=== PATIENT | female | born 1975 | race Caucasian/White ===

== ENCOUNTER 2017-06-23 16:14 | Emergency (ER) | payer OTHER ==
[2017-06-23 16:40] VITALS: BP 162/84; PULSE 76; RESP 20; TEMP 98.2
--- NOTE | 2017-06-23 16:57 | ED ---
Allergic Reaction HPI - General Chief complaint: Allergic Reaction Stated complaint: allergic reaction (bactrim) Time Seen by Provider: 06/23/17 16:43 Source: patient Mode of arrival: ambulatory Limitations: no limitations - History of Present Illness Initial Comments: 42-year-old female patient presented to emergency department today for evaluation of rash to her trunk. Patient states this rash is itchy. Patient states that it started yesterday. States that she has been taking Bactrim for the last 5 days for a infection to her skin on the left hip. Patient states that she called her doctor who told her to come in to get a different antibiotic prescription. Patient does have a healing abscess to the left hip. Denies any blistering or drainage from the lesions. She denies any facial, tongue, or throat swelling. Denies any shortness of breath, chest pain, dizziness, weakness, abdominal pain, nausea, vomiting, fever, chills, or difficulty with urination or bowel movements. She denies ever having taken Bactrim in the past. - Related Data Previous Rx's Medication Instructions Recorded Clindamycin [Cleocin] 300 mg PO Q6H #28 capsule 06/23/17 Allergies Allergy/AdvReac Type Severity Reaction Status Date / Time codeine Allergy Nausea & Verified 06/23/17 16:39 Vomiting sulfamethoxazole Allergy Rash/Hives Verified 06/23/17 17:02 [From Bactrim] trimethoprim [From Bactrim] Allergy Rash/Hives Verified 06/23/17 17:02 Review of Systems ROS Statement: Those systems with pertinent positive or pertinent negative responses have been documented in the HPI. ROS Other: All systems not noted in ROS Statement are negative. Past Medical History Past Medical History: No Reported History History of Any Multi-Drug Resistant Organisms: None Reported Past Surgical History: Section, Tonsillectomy Past Psychological History: No Psychological Hx Reported Smoking Status: Never smoker Past Alcohol Use History: None Reported Past Drug Use History: None Reported General Exam Limitations: no limitations General appearance: alert, in no apparent distress Eye exam: Present: normal appearance, PERRL, EOMI. Absent: scleral icterus, conjunctival injection, periorbital swelling ENT exam: Present: normal exam, mucous membranes moist Neck exam: Present: normal inspection. Absent: tenderness, meningismus, lymphadenopathy Respiratory exam: Present: normal lung sounds bilaterally. Absent: respiratory distress, wheezes, rales, rhonchi, stridor Cardiovascular Exam: Present: regular rate, normal rhythm, normal heart sounds. Absent: systolic murmur, diastolic murmur, rubs, gallop, clicks Extremities exam: Present: normal inspection, full ROM, normal capillary refill , other (Left hip exhibits an ulcerated lesion with surrounding erythema, no warmth to the site. No area of drainable abscess.). Absent: tenderness, pedal edema, joint swelling, calf tenderness Back exam: Present: normal inspection Neurological exam: Present: alert, oriented X3, CN II-XII intact Psychiatric exam: Present: normal affect, normal mood Skin exam: Present: warm, dry, intact, normal color, rash (Rash noted to abdomen and back, macular with surrounding erythema. It appears to be hives.) Course Vital Signs 06/23/17 16:39 Temperature 98.2 F Pulse Rate 76 Respiratory 20 Rate Blood Pressure 162/84 O2 Sat by Pulse 98 Oximetry Medical Decision Making - Medical Decision Making 42-year-old female patient presented to emergency department today for evaluation of rash to her abdomen and back. The patient has been taking Bactrim for the last 5 days states that she has never taken this before. Will be taken off Bactrim and placed on clindamycin for a staph infection to an abscess on her left hip. Patient instructed to continue taking Benadryl every 6 hours, also instructed her that she could take [id number] Claritin or Zyrtec as well. Instructed to follow-up with her primary care physician for recheck in 1-2 days. Instructed to return for any new, worsening, or concerning symptoms. Patient verbalizes understanding and agrees this plan. Disposition Clinical Impression: Staphylococcal infection of skin, Allergic reaction caused by a drug Disposition: HOME SELF-CARE Condition: Good Instructions: Antibiotic Medication Allergy (ED) Additional Instructions: Take Benadryl every 6 hours as needed for symptoms. Stop taking Bactrim. Complete new antibiotic in full. Follow up with primary care physician for recheck in 1-2 days. Return here immediately for any new, worsening, or concerning symptoms. Prescriptions: Clindamycin [Cleocin] 300 mg PO Q6H #28 capsule Referrals: Korina Romero MD [Primary Care Provider] - 1-2 days Time of Disposition: 16:56
== END 2017-06-23 17:04 | disposition home or self-care (01) ==
LOC: EC 16:14
DX: T37.0X5A Adverse effect of sulfonamides, initial encounter (principal); L27.0 Generalized skin eruption due to drugs and medicaments taken internally; L02.416 Cutaneous abscess of left lower limb; B95.8 Unspecified staphylococcus as the cause of diseases classified elsewhere; Z88.5 Allergy status to narcotic agent; Z88.6 Allergy status to analgesic agent
CPT/HCPCS: 99283

== ENCOUNTER 2021-03-01 12:41 | Emergency (ER) | payer OTHER ==
[2021-03-01 12:57] VITALS: TEMP 98.3
[2021-03-01] MEDS ORDERED: LORazepam 2 MG/ML INJ IV STA (13:06)
--- NOTE | 2021-03-01 13:10 | ED ---
General Adult HPI - General Chief complaint: Chest Pain Stated complaint: High BP,Sent by pcp Time Seen by Provider: 03/01/21 12:55 Source: patient, RN notes reviewed, old records reviewed Mode of arrival: ambulatory Limitations: no limitations - History of Present Illness Initial comments: This is a 45-year-old female with past medical history significant for anxiety and panic attacks. Patient states yesterday she went in to see her foot doctor and at the office her blood pressure was high. Her about a blood pressure cuff and took it all night long and she states it continued to be high and getting higher so she called her primary medical care doctor's office they told to come to the emergency department. Patient denies any chest pain patient denies any palpitations. Patient denies any shortness of breath or difficulty breathing. Patient denies any recent fever chills or cough per patient denies headache patient denies any blurred vision. Patient denies any numbness or weakness. Patient denies any recent abdominal pain nausea vomiting or diarrhea. - Related Data Home Medications Medication Instructions Recorded Confirmed Apple Cider Vinegar Gummies 2 tab PO DAILY 03/01/21 03/01/21 Multivitamins, Thera [Multivitamin 1 tab PO DAILY 03/01/21 03/01/21 (formulary)] Previous Rx's Medication Instructions Recorded amLODIPine [Norvasc] 5 mg PO DAILY #20 tab 03/01/21 Allergies Allergy/AdvReac Type Severity Reaction Status Date / Time codeine Allergy Nausea & Verified 03/01/21 13:29 Vomiting sulfamethoxazole Allergy Rash/Hives Verified 03/01/21 13:29 [From Bactrim] trimethoprim [From Bactrim] Allergy Rash/Hives Verified 03/01/21 13:29 Review of Systems ROS Statement: Those systems with pertinent positive or pertinent negative responses have been documented in the HPI. ROS Other: All systems not noted in ROS Statement are negative. Past Medical History Past Medical History: No Reported History History of Any Multi-Drug Resistant Organisms: None Reported Past Surgical History: Section, Tonsillectomy, Uterine Ablation Past Psychological History: No Psychological Hx Reported Smoking Status: Never smoker Past Alcohol Use History: None Reported Past Drug Use History: None Reported General Exam - General Exam Comments Initial Comments: GENERAL: Patient is well-developed and well-nourished. Patient is nontoxic and well- hydrated and is in mild distress. ENT: Neck is soft and supple. No significant lymphadenopathy is noted. Oropharynx is clear. Moist mucous membranes. Neck has full range of motion without eliciting any pain. EYES: The sclera were anicteric and conjunctiva were pink and moist. Extraocular movements were intact and pupils were equal round and reactive to light. Eyelids were unremarkable. PULMONARY: Unlabored respirations. Good breath sounds bilaterally. No audible rales rhonchi or wheezing was noted. CARDIOVASCULAR: There is a regular rate and rhythm without any murmurs gallops or rubs. ABDOMEN: Soft and nontender with normal bowel sounds. SKIN: Skin is clear with no lesions or rashes and otherwise unremarkable. NEUROLOGIC: Patient is alert and oriented x3. Cranial nerves II through XII are grossly intact. Motor and sensory are also intact. Normal speech, volume and content. Symmetrical smile. MUSCULOSKELETAL: Normal extremities with adequate strength and full range of motion. LYMPHATICS: No significant lymphadenopathy is noted PSYCHIATRIC: Patient has anxious Limitations: no limitations Course Vital Signs 03/01/21 03/01/21 03/01/21 12:53 13:31 13:43 Temperature 98.3 F Pulse Rate 82 73 Pulse Rate [ 73 Caddy Packer ] Respiratory 18 16 Rate Blood Pressure 206/122 185/107 O2 Sat by Pulse 96 98 Oximetry 03/01/21 14:11 Temperature Pulse Rate 74 Pulse Rate [ Caddy Packer ] Respiratory 16 Rate Blood Pressure 143/101 O2 Sat by Pulse 99 Oximetry Medical Decision Making - Medical Decision Making EKG shows normal sinus rhythm at 92 bpm AL interval 252 QRS is 92 QT interval 360 QTC is 445. Patient's EKG shows no ST segment elevation or depression. Chest x-ray shows no acute normalities. Patient got 1 of Ativan her blood pressure came down quite a bit. - Lab Data Result diagrams: 03/01/21 13:05 03/01/21 13:05 Lab Results 03/01/21 03/01/21 03/01/21 Range/Units 13:05 13:05 13:05 WBC 9.2 (3.8-10.6) k/uL RBC 4.59 (3.80-5.40) m/uL Hgb 14.5 (11.4-16.0) gm/dL Hct 42.5 (34.0-46.0) % MCV 92.6 (80.0-100.0) fL MCH 31.6 (25.0-35.0) pg MCHC 34.1 (31.0-37.0) g/dL RDW 12.2 (11.5-15.5) % Plt Count 302 (150-450) k/uL MPV 6.8 Neutrophils % 73 % Lymphocytes % 18 % Monocytes % 6 % Eosinophils % 1 % Basophils % 0 % Neutrophils # 6.7 (1.3-7.7) k/uL Lymphocytes # 1.7 (1.0-4.8) k/uL Monocytes # 0.5 (0-1.0) k/uL Eosinophils # 0.1 (0-0.7) k/uL Basophils # 0.0 (0-0.2) k/uL PT 9.9 (9.0-12.0) sec INR 0.9 (<1.2) APTT 22.1 (22.0-30.0) sec Sodium 142 (137-145) mmol/L Potassium 4.3 (3.5-5.1) mmol/L Chloride 108 H (98-107) mmol/L Carbon Dioxide 26 (22-30) mmol/L Anion Gap 8 mmol/L BUN 22 H (7-17) mg/dL Creatinine 0.99 (0.52-1.04) mg/dL Est GFR (CKD-EPI)AfAm 79 (>60 ml/min/1.73 sqM) Est GFR (CKD-EPI)NonAf 68 (>60 ml/min/1.73 sqM) Glucose 69 L (74-99) mg/dL Calcium 9.5 (8.4-10.2) mg/dL Magnesium 1.8 (1.6-2.3) mg/dL Total Bilirubin 0.3 (0.2-1.3) mg/dL AST 32 (14-36) U/L ALT 27 (4-34) U/L Alkaline Phosphatase 71 (38-126) U/L Troponin I (0.000-0.034) ng/mL Total Protein 7.2 (6.3-8.2) g/dL Albumin 4.5 (3.5-5.0) g/dL 03/01/21 Range/Units 13:05 WBC (3.8-10.6) k/uL RBC (3.80-5.40) m/uL Hgb (11.4-16.0) gm/dL Hct (34.0-46.0) % MCV (80.0-100.0) fL MCH (25.0-35.0) pg MCHC (31.0-37.0) g/dL RDW (11.5-15.5) % Plt Count (150-450) k/uL MPV Neutrophils % % Lymphocytes % % Monocytes % % Eosinophils % % Basophils % % Neutrophils # (1.3-7.7) k/uL Lymphocytes # (1.0-4.8) k/uL Monocytes # (0-1.0) k/uL Eosinophils # (0-0.7) k/uL Basophils # (0-0.2) k/uL PT (9.0-12.0) sec INR (<1.2) APTT (22.0-30.0) sec Sodium (137-145) mmol/L Potassium (3.5-5.1) mmol/L Chloride (98-107) mmol/L Carbon Dioxide (22-30) mmol/L Anion Gap mmol/L BUN (7-17) mg/dL Creatinine (0.52-1.04) mg/dL Est GFR (CKD-EPI)AfAm (>60 ml/min/1.73 sqM) Est GFR (CKD-EPI)NonAf (>60 ml/min/1.73 sqM) Glucose (74-99) mg/dL Calcium (8.4-10.2) mg/dL Magnesium (1.6-2.3) mg/dL Total Bilirubin (0.2-1.3) mg/dL AST (14-36) U/L ALT (4-34) U/L Alkaline Phosphatase (38-126) U/L Troponin I <0.012 (0.000-0.034) ng/mL Total Protein (6.3-8.2) g/dL Albumin (3.5-5.0) g/dL Disposition Clinical Impression: Hypertensive urgency, Anxiety Disposition: HOME SELF-CARE Instructions (If sedation given, give patient instructions): Hypertension (ED) Prescriptions: amLODIPine [Norvasc] 5 mg PO DAILY #20 tab Is patient prescribed a controlled substance at d/c from ED?: No Referrals: Korina Romero MD [Primary Care Provider] - 1-2 days Time of Disposition: 14:17
[2021-03-01 13:37] LABS: Basophils % (A) 0 %; Eosinophils # (A) 0.1 k/uL (0-0.7); Eosinophils % (A) 1 %; HCT 42.5 % (34.0-46.0); HGB 14.5 gm/dL (11.4-16.0); Lymphocytes # (A) 1.7 k/uL (1.0-4.8); Lymphocytes % (A) 18 %; MCH 31.6 pg (25.0-35.0); MCHC 34.1 g/dL (31.0-37.0); MCV 92.6 fL (80.0-100.0); Mean Platelet Volume 6.8; Monocytes # (A) 0.5 k/uL (0-1.0); Monocytes % (A) 6 %; Neutrophils # (A) 6.7 k/uL (1.3-7.7); Neutrophils % (A) 73 %; Platelet Count 302 k/uL (150-450); RBC 4.59 m/uL (3.80-5.40); RDW 12.2 % (11.5-15.5); WBC 9.2 k/uL (3.8-10.6)
[2021-03-01 13:43] VITALS: RESP 16
[2021-03-01 13:48] LABS: Albumin 4.5 g/dL (3.5-5.0); Calcium 9.5 mg/dL (8.4-10.2); Magnesium 1.8 mg/dL (1.6-2.3); Potassium 4.3 mmol/L (3.5-5.1); Total Bilirubin 0.3 mg/dL (0.2-1.3); Total Protein 7.2 g/dL (6.3-8.2)
--- NOTE | 2021-03-01 13:54 | XR ---
EXAMINATION TYPE: XR chest 2V DATE OF EXAM: 03/01/2021 COMPARISON: None INDICATION: Chest pain TECHNIQUE: Frontal and lateral views of the chest are obtained. FINDINGS: The heart size is normal. The pulmonary vasculature is normal. The lungs are clear. IMPRESSION: 1. No acute pulmonary process.
[2021-03-01] MEDS ORDERED: hydrALAZINE HCL 20 MG/ML 1 ML VIAL IVP STA ×2 (13:56→14:56)
[2021-03-01 14:08] LABS: INR 0.9 (<1.2)
[2021-03-01 14:09] LABS: Partial Thromboplastin Time 22.1 sec (22.0-30.0); Prothrombin Time 9.9 sec (9.0-12.0)
[2021-03-01 14:11] VITALS: PULSE 74
[2021-03-01 14:57] VITALS: BP 164/111
== END 2021-03-01 15:27 | disposition home or self-care (01) ==
LOC: EC 12:41
DX: I16.0 Hypertensive urgency (principal); F41.9 Anxiety disorder, unspecified
CPT/HCPCS: 36415; 93005; 80053; 83735; 84484; 85025; 85610; 85730; 71046; 99284; 96374; 96375; J2060; J0360

== ENCOUNTER 2021-03-23 21:33 | Emergency (ER) | payer OTHER ==
[2021-03-23] MEDS ORDERED: SODIUM CHLORIDE 0.9% 1,000 ML IV STA (21:51)
[2021-03-23 21:52] VITALS: RESP 18; TEMP 97.6
--- NOTE | 2021-03-23 22:04 | ED ---
Chest Pain HPI - General Chief Complaint: Chest Pain Stated Complaint: Chest Pain Time Seen by Provider: 03/23/21 21:51 Source: patient, RN notes reviewed Mode of arrival: wheelchair Limitations: no limitations - History of Present Illness Initial Comments: Patient is a 45-year-old female that presents to emergency with chest heaviness at on and off for the last 2 days. She notes that she has also had nighttime sweats and she notes that she has not noticed any different symptoms throughout the day and states that she feels pretty no. She notes that she has recently been tried on several blood pressure medications by her primary care. She notes her primary care as switching them fairly rapidly. She notes that she's been bottoming out on amlodipine was switched to lisinopril proximal, Dyazide has been having issues with that. She notes that she did not take her high blood pressure medication today. She notes that she does have a history of anxiety and has normal daily stress. She notes that she does have some neck tension and a headache also. She was well-appearing well-hydrated while sitting up in bed during the exam interview. She denied any current pain or discomfort. She denied any shortness of breath headache nausea vomiting diarrhea constipation fever fatigue and blurry vision change in vision. - Related Data Home Medications Medication Instructions Recorded Confirmed Apple Cider Vinegar Gummies 2 tab PO DAILY 03/01/21 03/01/21 Multivitamins, Thera [Multivitamin 1 tab PO DAILY 03/01/21 03/01/21 (formulary)] Previous Rx's Medication Instructions Recorded amLODIPine [Norvasc] 5 mg PO DAILY #20 tab 03/01/21 Allergies Allergy/AdvReac Type Severity Reaction Status Date / Time codeine Allergy Nausea & Verified 03/23/21 21:51 Vomiting sulfamethoxazole Allergy Rash/Hives Verified 03/23/21 21:51 [From Bactrim] trimethoprim [From Bactrim] Allergy Rash/Hives Verified 03/23/21 21:51 Review of Systems ROS Statement: Those systems with pertinent positive or pertinent negative responses have been documented in the HPI. ROS Other: All systems not noted in ROS Statement are negative. EKG Findings - EKG Comments: EKG Findings:: Ventricular rate 66 bpm, CT interval 120 ms, QRS duration of 14 ms, QT/QTc 400/419 ms, PRT axis . Normal sinus rhythm, normal ECG. Past Medical History Past Medical History: Hypertension History of Any Multi-Drug Resistant Organisms: None Reported Past Surgical History: Section, Tonsillectomy, Uterine Ablation Past Psychological History: No Psychological Hx Reported Smoking Status: Never smoker Past Alcohol Use History: None Reported Past Drug Use History: None Reported General Exam Limitations: no limitations General appearance: alert, in no apparent distress Head exam: Present: atraumatic, normocephalic, normal inspection Eye exam: Present: normal appearance, PERRL, EOMI. Absent: scleral icterus, conjunctival injection, periorbital swelling ENT exam: Present: normal exam Neck exam: Present: normal inspection, full ROM Respiratory exam: Present: normal lung sounds bilaterally. Absent: respiratory distress, wheezes, rales, rhonchi, stridor Cardiovascular Exam: Present: regular rate, normal rhythm, normal heart sounds. Absent: systolic murmur, diastolic murmur, rubs, gallop, clicks Extremities exam: Present: normal inspection, full ROM, normal capillary refill. Absent: tenderness, pedal edema, joint swelling, calf tenderness Neurological exam: Present: alert, oriented X3, CN II-XII intact Psychiatric exam: Present: normal affect, normal mood Skin exam: Present: warm, dry, intact, normal color. Absent: rash Course Vital Signs 03/23/21 21:48 Temperature 97.6 F Pulse Rate 70 Respiratory 18 Rate Blood Pressure 176/99 O2 Sat by Pulse 100 Oximetry Chest Pain MDM - [facility] 45-year-old female complaining of chest heaviness on and off for the last 2 days. Labs, EKG, full stack java developer, 1 L normal saline, chest x-ray ordered. Chest x-ray: Normal chest. No change. Line labs unremarkable. Case discussed with Dr. Nielsen, patient can discharge home consult primary care. - Wells Criteria Clinical Symptoms of DVT: (0) No No Alternative Diagnosis: (0) No Immobilization of Surgery in Previous 4 Weeks: (0) No Previous DVT/PE: (0) No Hemoptysis: (0) No Malignancy: (0) No - ALY Score Age > 65: (0) No 3 or more CAD Risk Factors: (0) No Known CAD with more than 50% Stenosis: (0) No Aspirin use within the Past 7 Days: (0) No ST Deviation Greater than 0.5mm: (0) No Disposition Clinical Impression: Chest pain, Anxiety Disposition: HOME SELF-CARE Condition: Stable Instructions (If sedation given, give patient instructions): Chest Pain (ED) Additional Instructions: Please return to the Emergency Department if symptoms worsen or any other concerns. Follow-up with primary care discuss hypertensive medication issues potentially just get on lisinopril. Is patient prescribed a controlled substance at d/c from ED?: No Referrals: Korina Romero MD [Primary Care Provider] - 1-2 days Time of Disposition: 23:48
--- NOTE | 2021-03-23 22:27 | XR ---
EXAMINATION TYPE: XR chest 2V DATE OF EXAM: 03/23/2021 COMPARISON: 03/01/2021 HISTORY: Chest pain TECHNIQUE: FINDINGS: Heart and mediastinum are normal. Lungs are clear. Diaphragm is normal. Bony thorax is inta ct. IMPRESSION: Normal chest. No change.
[2021-03-23 22:36] LABS: Basophils % (A) 1 %; Eosinophils # (A) 0.1 k/uL (0-0.7); Eosinophils % (A) 2 %; HCT 44.1 % (34.0-46.0); Lymphocytes % (A) 26 %; MCH 31.3 pg (25.0-35.0); MCHC 34.1 g/dL (31.0-37.0); MCV 91.8 fL (80.0-100.0); Mean Platelet Volume 6.6; Monocytes # (A) 0.5 k/uL (0-1.0); Monocytes % (A) 6 %; Neutrophils % (A) 65 %; Platelet Count 323 k/uL (150-450); RDW 11.6 % (11.5-15.5); WBC 7.8 k/uL (3.8-10.6)
[2021-03-23 22:45] LABS: INR 0.9 (<1.2); Partial Thromboplastin Time 22.3 sec (22.0-30.0); Prothrombin Time 9.8 sec (9.0-12.0)
[2021-03-23 22:47] LABS: ALT 31 U/L (4-34); AST 32 U/L (14-36); African American GFR (CKD) >90 (>60 ml/min/1.73 sqM); Albumin 4.3 g/dL (3.5-5.0); Alkaline Phosphatase 80 U/L (38-126); Anion Gap 9 mmol/L; Blood Urea Nitrogen 16 mg/dL (7-17); Carbon Dioxide 27 mmol/L (22-30); Chloride 104 mmol/L (98-107); Glucose 99 mg/dL (74-99); Non-African American GFR(CKD) 80 (>60 ml/min/1.73 sqM); Potassium 3.8 mmol/L (3.5-5.1); Sodium 140 mmol/L (137-145); Total Bilirubin <0.1 mg/dL (0.2-1.3); Total Protein 6.8 g/dL (6.3-8.2)
[2021-03-24 00:09] VITALS: BP 150/89; PULSE 80
== END 2021-03-24 00:09 | disposition home or self-care (01) ==
LOC: EC 21:33
DX: R07.9 Chest pain, unspecified (principal); F41.9 Anxiety disorder, unspecified; I10 Essential (primary) hypertension; Z88.1 Allergy status to other antibiotic agents; Z88.2 Allergy status to sulfonamides; Z88.5 Allergy status to narcotic agent
CPT/HCPCS: 36415; 71046; 80053; 83735; 84484; 85025; 85610; 85730; 93005; 96360; 99285

== ENCOUNTER → 2021-09-11 | Outpatient (CLI) | payer BC, OTHER ==
--- NOTE | 2021-09-12 12:11 | MM ---
Reason for exam: screening (asymptomatic). Last mammogram was performed 7 years and 8 months ago. History: Took hormonal contraceptives for 5 years. Physical Findings: A clinical breast exam by your physician is recommended on an annual basis and results should be correlated with mammographic findings. MG Screening Mammo w CAD Bilateral CC and MLO view(s) were taken. Prior study comparison: January 05, 2014, mammogram, performed at [facility]. There are scattered fibroglandular densities. Finding #1: There is equal architectural distortion in the upper quadrant, middle position of the right breast consistent with possible summation density. Finding #2: There are intermediate concern, suspicious fine, grouped/clustered calcifications in the upper outer quadrant, anterior position of the right breast. ASSESSMENT: Incomplete: need additional imaging evaluation, BI-RAD 0 RECOMMENDATION: Special view mammogram of the right breast. If lesion persists on supplemental views, image directed ultrasound is recommended. [facility] will attempt to contact patient to return for supplemental views and ultrasound if indicated.
== END | disposition home or self-care (01) ==
LOC: RADMAMWWP 07:22
PROVIDERS: ATTEND Internal Medicine
DX: Z12.31 Encounter for screening mammogram for malignant neoplasm of breast (principal)
CPT/HCPCS: 77067

== ENCOUNTER → 2021-09-25 | Outpatient (CLI) | payer BC ==
--- NOTE | 2021-09-25 08:31 | MM ---
Reason for exam: additional evaluation requested from abnormal screening. Last mammogram was performed less than 1 month ago. History: Took hormonal contraceptives for 5 years. Physical Findings: Nurse did not find any significant physical abnormalities on exam. MG Work Up Mamm w CAD RT CC with magnification, LM with magnification, and LM view(s) were taken of the right breast. Prior study comparison: September 11, 2021, bilateral MG screening mammo w CAD. There are scattered fibroglandular densities. Finding: There are intermediate concern, suspicious grouped/clustered, fine calcifications in the upper outer quadrant, anterior position of the right breast 2cm from the nipple. There is no discrete abnormality including area of concern of the distortion. These results were verbally communicated with the patient and result sheet given to the patient on 09/25/21. ASSESSMENT: Suspicious, BI-RAD 4 RECOMMENDATION: Stereotactic core biopsy of the right breast. Called Dr. Romero's office with mammographic findings and has scheduled an appointment for the patient for 10/09/21 at 3:[address] Kumar. Biopsy scheduled for 11/01/21 at 8:00. PRELIMINARY REPORT CALLED AND FAXED TO DR. KUMAR ON 09/25/21.
== END | disposition home or self-care (01) ==
LOC: RADMAMWWP 06:57
PROVIDERS: ATTEND Internal Medicine
DX: R92.8 Other abnormal and inconclusive findings on diagnostic imaging of breast (principal)
CPT/HCPCS: 77065

== ENCOUNTER → 2021-10-09 | Outpatient (CLI) | payer BC ==
[2021-10-09 14:54] VITALS: PULSE 91; RESP 18
--- NOTE | 2021-10-09 15:07 | P.GSHP ---
History of Present Illness H&P Date: 10/09/21 Chief Complaint: Abnormal right breast mammogram Aliza is a 46 year old white female seen in consultation for DR. Romero regarding a mammographic abnormality in the right breast. She underwent a bilateral mammogram on [id number] after which special views of the right breast [place] [address]. These revealed clustered/grouped fine calcifications in the upper outer quadrant interposition of the right breast. This was felt to be suspicious BIRADS 4 and the stereotactic core biopsy was recommended. Does not note any lumps masses or nodules of concern in either breast. She is not complaining of any nipple discharge or skin changes. She has never had any sufficiently in her breast. She has not had any recent infection or trauma to the breast. caffiene: pop every other day nicotine: none chocolate: occasional BCP: 5 years, stopped in ' hormones: none Family History: negative for cancer Hormonal History: menarche: 13 . breast fed: yes, age at first : 23 ablation in 2012 no periods since than Surgical History: Uterine ablation in 2013 times 2 tonsillectomy Medical History: HTN leaking heart valve Social History: nicotine: none alcohol: none drugs: none - Constitutional Constitutional: Denies chills, Denies fever - EENT Eyes: denies blurred vision, denies pain Ears: deny: decreased hearing, tinnitus Ears, nose, mouth and throat: Denies headache, Denies sore throat - Breasts Breasts: bilateral: as per HPI - Cardiovascular Cardiovascular: Reports high blood pressure - Respiratory Respiratory: Denies cough, Denies 7 - Gastrointestinal Gastrointestinal: Denies abdominal pain, Denies diarrhea, Denies nausea, Denies vomiting - Genitourinary (Female) Genitourinary: Denies dysuria, Denies hematuria - Menstruation Menstruation: Reports as per HPI - Musculoskeletal Musculoskeletal: Denies myalgias - Integumentary Integumentary: Denies pruritus, Denies rash - Neurological Neurological: Denies numbness, Denies weakness - Psychiatric Psychiatric: Reports anxiety, Denies depression - Endocrine Endocrine: Reports weight change - Hematologic/Lymphatic Comment: none - Allergic/Immunologic Allergic/Immunologic: Reports as per HPI Past Medical History Past Medical History: Hypertension History of Any Multi-Drug Resistant Organisms: None Reported Past Surgical History: Section, Tonsillectomy, Uterine Ablation Past Psychological History: No Psychological Hx Reported Smoking Status: Never smoker Past Alcohol Use History: None Reported Past Drug Use History: None Reported Medications and Allergies Home Medications Medication Instructions Recorded Confirmed Type Multivitamins, Thera [Multivitamin 1 tab PO DAILY 03/01/21 03/01/21 History (formulary)] amLODIPine [Norvasc] 5 mg PO DAILY #20 tab 03/01/21 Rx Ascorbic Acid [Vitamin C] 500 mg PO DAILY 10/09/21 10/09/21 History Magnesium 200 mg PO DAILY 10/09/21 10/09/21 History Zinc 50 mg PO DAILY 10/09/21 10/09/21 History Allergies Allergy/AdvReac Type Severity Reaction Status Date / Time codeine Allergy Nausea & Verified 10/09/21 14:48 Vomiting sulfamethoxazole Allergy Rash/Hives Verified 10/09/21 14:48 [From Bactrim] trimethoprim [From Bactrim] Allergy Rash/Hives Verified 10/09/21 14:48 Surgical - Exam BMI 39.3 - General no distress - Eyes normal ocular movement - ENT no hearing loss - Neck trachea midline - Respiratory normal expansion - Cardiovascular Heart Sounds: normal: S1, S2 - Abdomen Abdomen: soft, non tender, no guarding, no rigid, no rebound - Integumentary normal turgor - Musculoskeletal normal gait - Psychiatric oriented to time, oriented to person, oriented to place, speech is normal, memory intact Breast Exam: BRA: 40C inspection: bilateral grade 2/3 ptosis palpation: right breast: Multiple positional exam fibrocystic changes no dominant masses or nodules of concern Right axilla: No adenopathy of concern Left breast: Multi-positional exam fibrocystic changes no dominant masses or nodules of concern Left axilla: No adenopathy of concern Results Review of mammogram results reveals microcalcifications of concern right breast for which stereotactic core biopsy is recommended Assessment and Plan Assessment: Impression: Microcalcifications of concern on right breast mammogram Fibrocystic breast changes Hypertension Plan: Stereotactic core biopsy right breast Risk and benefits of the procedure discussed with the patient she understands and wishes to proceed. Risks include but are not limited to bleeding, infection, reaction to the anesthetic. Alternatives such as watchful waiting or removal in the operating room I discussed but not recommended. The stereotactic core biopsy has been scheduled. Cc: Dr. Romero, Dr. Alonso
[2021-10-09 15:13] VITALS: BP 166/116
== END | disposition home or self-care (01) ==
LOC: WWCWWP 14:42
PROVIDERS: ATTEND Surgery
DX: Z53.9 Procedure and treatment not carried out, unspecified reason (principal)

== ENCOUNTER → 2021-11-01 | Day surgery (SDC) | payer BC ==
[2021-11-01 07:26] VITALS: RESP 16
--- NOTE | 2021-11-01 08:50 | P.PCN ---
Date of Procedure: 11/01/21 Preoperative Diagnosis: Mammographic abnormality right breast/and intermediate concern suspicious group/clustered calcifications upper outer quadrant anterior position of the right breast Postoperative Diagnosis: Same Procedure(s) Performed: Right breast stereotactic core biopsy Anesthesia: local Surgeon: Luciana Kumar Pathology: other (Breast tissue/microcalcifications present in specimen) Condition: stable Disposition: same day Indications for Procedure: Microcalcifications of concern right breast Operative Findings: Radiographic specimen reveals microcalcifications of concern Description of Procedure: The patient is a 46-year-old white female who on a mammogram was noted to have microcalcifications of concern in the right breast in the upper outer quadrant region anterior position. A stereotactic core biopsy was recommended. Risks and benefits of the procedure were discussed with the patient. Risks include but are not limited to bleeding, infection, reaction to the anesthetic. Additionally aggressively would not get the correct sample at that it would be discordant resulting in further biopsy. The patient understands and wishes to proceed. Alternatives such as watchful waiting or resection in the operating room or noted but not recommended. The patient was taken to the stereotactic core biopsy room. She was positioned prone on the lo-rad table. A CC from above approach was utilized. A dermatological surgeon film was obtained. The area of concern was identified. The area was targeted. The breast was prepped using Betadine. 20 mL of 1% lidocaine was used to anesthetize the area of concern. A 9-gauge vacuum-assisted core rotating biopsy needle was driven to the correct coordinates. A prefire film was obtained. The needle was noted to be in the correct location. The needle was fired. Post fire film was obtained. The needle was noted to be in the correct location. Several samples were obtained but the patient complained of discomfort therefore additional 8 mL of 1% lidocaine was injected towards the tip of the needle. Repeat radiographs was obtained showing the needle to be in the correct location. Core biopsy samples were obtained. Radiograph of the specimen revealed the calcifications of concern had been sampled. A secure rosalinda top hat clip was placed. The clip was noted to be in the correct location. The patient tolerated the procedure in stable condition. The specimen was sent to pathology. The patient will follow-up with Dr. Smith next week.
[2021-11-01 08:54] VITALS: BP 143/94; PULSE 76; TEMP 98.1
--- NOTE | 2021-11-04 08:13 | MM ---
The patient is a 46-year-old white female who on a mammogram was noted to have microcalcifications of concern in the right breast in the upper outer quadrant region anterior position. A stereotactic core biopsy was recommended. Risks and benefits of the procedure were discussed with the patient. Risks include but are not limited to bleeding, infection, reaction to the anesthetic. Additionally if the sample were to be discordant it may result in further biopsy. The patient understands and wishes to proceed. Alternatives such as watchful waiting or resection in the operating room were noted but not recommended. The patient was taken to the stereotactic core biopsy room. She was positioned prone on the lo-rad table. A CC from above approach was utilized. A stone polisher hand film was obtained. The area of concern was identified. The area was targeted. The breast was prepped using Betadine. 20 mL of 1% lidocaine was used to anesthetize the area of concern. A 9-gauge vacuum-assisted core rotating biopsy needle was driven to the correct coordinates. A prefire film was obtained. The needle was noted to be in the correct location. The needle was fired. Post fire film was obtained. The needle was noted to be in the correct location. Several samples were obtained but the patient complained of discomfort therefore additional 8 mL of 1% lidocaine was injected towards the tip of the needle. Repeat radiographs was obtained showing the needle to be in the correct location. Additional core biopsy samples were obtained without am=ny complaint of pain by the patient. Radiograph of the specimen revealed the calcifications of concern had been sampled. A secure rosalinda top hat clip was placed. The clip was noted to be in the correct location. The patient tolerated the procedure in stable condition. The specimen was sent to pathology. The patient will follow-up with Dr. Smith next week. MAYITO
== END ==
LOC: RADMAMWWP 07:06
PROVIDERS: ATTEND Surgery
DX: N60.11 Diffuse cystic mastopathy of right breast (principal); N60.21 Fibroadenosis of right breast
CPT/HCPCS: 88305; 19081; A4648; J2001

== ENCOUNTER → 2021-11-07 | Outpatient (CLI) | payer BC ==
--- NOTE | 2021-11-07 12:38 | P.PN ---
Subjective Progress Note Date: 11/07/21 Principal diagnosis: Fibrocystic breast changes Aliza is a 46 year old white female who had a biopsy of the right breast on 1721. Pathology revealed fibrocystic changes including sclerosing adenosis with calcifications which were felt to be benign specific. She tolerated the procedure but did complain of some ecchymosis following it. Objective - Constitutional General appearance: Present: cooperative - EENT Eyes: Present: EOMI ENT: Present: hearing grossly normal - Neck Neck: Present: normal ROM - Respiratory Respiratory: bilateral: CTA - Cardiovascular Rhythm: regular Heart sounds: normal: S1, S2 - Integumentary Integumentary Comment(s): mile echymosis right breast no evidence of infection or hematoma near stereotactic core biopsy site Integumentary: Present: normal turgor - Musculoskeletal Musculoskeletal: Present: gait normal - Psychiatric Psychiatric: Present: A&O x's 3, appropriate affect, intact judgment & insight Assessment and Plan Assessment: Impression: Hepatic core biopsy right breast fibrocystic changes Plan: Repeat right breast mammogram in 6 months. Physician exam at that time Cc: Dr. Romero
[2021-11-07 12:48] VITALS: BP 143/89; PULSE 72; RESP 18; TEMP 98.2
== END | disposition home or self-care (01) ==
LOC: WWCWWP 12:11
PROVIDERS: ATTEND Surgery
DX: Z53.9 Procedure and treatment not carried out, unspecified reason (principal)

== ENCOUNTER → 2022-05-07 | Outpatient (CLI) | payer BC ==
--- NOTE | 2022-05-07 08:20 | MM ---
Reason for Exam: Follow-up at short interval from prior study. Last screening mammogram was performed 8 month(s) ago. Patient History: Menarche at age 11. First Full-Term at age 20. Patient used Hormonal Contraceptives for 5 years. 11/01/2021, Benign Core Biopsy on the right side. Risk Values: Myranda 5 year model risk: 1.0%. NCI Lifetime model risk: 9.6%. Prior Study Comparison: 01/05/2014 Screening Mammogram, [facility]. 09/11/2021 Bilateral Screening Mammogram, [facility]. 09/25/2021 Right Diagnostic Mammogram, [facility]. Tissue Density: Right: There are scattered fibroglandular densities. Findings: Analyzed By CAD. Biopsy clip right breast anteriorly redemonstrated. No suspicious new mass or distortion in the right breast. Overall Assessment: Benign, BI-RAD 2 Management: Screening Mammogram of both breasts in 6 months. A clinical breast exam by your physician is recommended on an annual basis and results should be correlated with mammographic findings. This exam should not preclude additional follow-up of suspicious palpable abnormalities. Results were given to the patient verbally at the time of exam. Electronically signed and approved by: Abhilash Rodriguez M.D.
== END | disposition home or self-care (01) ==
LOC: RADMAMWWP 07:42
PROVIDERS: ATTEND Surgery
DX: R92.8 Other abnormal and inconclusive findings on diagnostic imaging of breast (principal)
CPT/HCPCS: 77061; 77065

== ENCOUNTER → 2022-07-02 | Outpatient (CLI) | payer BC ==
[2022-07-02 14:21] LABS: Basophils # (A) 0.07 X 10*3/uL (0.00-0.10); Basophils % (A) 0.8 %; Eosinophils # (A) 0.55 X 10*3/uL (0.04-0.35); Eosinophils % (A) 6.3 %; HCT 41.6 % (37.2-46.3); HGB 13.6 g/dL (12.0-15.0); Immature Grans, Automated 0.6 %; Lymphocytes # (A) 2.55 X 10*3/uL (0.90-5.00); Lymphocytes % (A) 29.4 %; MCH 30.2 pg (27.0-32.0); MCHC 32.7 g/dL (32.0-37.0); MCV 92.4 fL (80.0-97.0); Mean Platelet Volume 9.5 fL (9.5-12.2); Monocytes # (A) 0.67 X 10*3/uL (0.20-1.00); Monocytes % (A) 7.7 %; NRBC Per 100 WBC 0 /100 WBCS (0.0-0.0); Neutrophils # (A) 4.78 X 10*3/uL (1.80-7.70); Neutrophils % (A) 55.2 %; Platelet Count 345 X 10*3/uL (140-440); RDW 11.9 % (11.5-14.5); WBC 8.67 X 10*3/uL (4.50-10.00)
[2022-07-02 15:27] LABS: ALT 31 U/L (8-44); AST 26 U/L (13-35); African American GFR (CKD) 76.6 (60.0-200.0); Albumin 4.5 g/dL (3.8-4.9); Albumin/Globulin Ratio 2.05 (1.60-3.17); Alkaline Phosphatase 73 U/L (41-126); Calcium 9.8 mg/dL (8.7-10.3); Carbon Dioxide 29.2 mmol/L (20.0-27.5); Chloride 102 mmol/L (96-109); Chol/HDL Ratio 3.05 Ratio; Globulin 2.2 g/dL (1.6-3.3); Glucose 96 mg/dL (70-110); LDL Cholesterol,Calculated 127.9 mg/dL (0.0-131.0); Non-African American GFR(CKD) 66.1 (60.0-200.0); Potassium 4.6 mmol/L (3.5-5.5); Sodium 143 mmol/L (135-145); Total Protein 6.7 g/dL (6.2-8.2)
== END | disposition home or self-care (01) ==
LOC: LABWHC1 07:19
PROVIDERS: ATTEND Internal Medicine
DX: Z00.01 Encounter for general adult medical examination with abnormal findings (principal); I10 Essential (primary) hypertension; R53.82 Chronic fatigue, unspecified
CPT/HCPCS: 36415; 80053; 80061; 82306; 84443; 85025

== ENCOUNTER → 2022-07-31 | Outpatient (CLI) | payer BC ==
--- NOTE | 2022-08-01 10:46 | CA ---
Transthoracic Echo Report Name: Aliza Carreon Age: 47 Gender: F : 1975 Exam Date: 07/31/2022 14:53 Exam Location: [place] [facility] Ht (in): 62 Wt (lb): 214 Ordering Physician: Korina Romero MD Attending/Referring Phys: Korina Romero MD Fruit Cutter Patricia Glass, [facility] Procedure CPT: Indications: I34.0 NONRHEUMATIC MITRAL (VALVE) INSUFFICIENCY Cardiac Hx: Technical Quality: Fair Contrast 1: Total Dose (mL): Contrast 2: Total Dose (mL): MEASUREMENTS (Male / Female) Normal Values 2D ECHO LV Diastolic Diameter PLAX 4.4 cm 4.2 - 5.9 / 3.9 - 5.3 cm LV Systolic Diameter PLAX 2.5 cm IVS Diastolic Thickness 1.2 cm 0.6 - 1.0 / 0.6 - 0.9 cm LVPW Diastolic Thickness 1.2 cm 0.6 - 1.0 / 0.6 - 0.9 cm LV Relative Wall Thickness 0.5 RV Internal Dim ED PLAX 2.8 cm LA Volume 37.3 cm??? 18 - 58 / 22 - 52 cm??? M-MODE Aortic Root Diameter MM 2.8 cm LA Systolic Diameter MM 3.7 cm LA Ao Ratio MM 1.4 AV Cusp Separation MM 1.8 cm DOPPLER AV Peak Velocity 166.7 cm/s AV Peak Gradient 11.1 mmHg LVOT Peak Velocity 82.3 cm/s LVOT Peak Gradient 2.7 mmHg MV Area PHT 2.3 cm??? Mitral E Point Velocity 71.0 cm/s Mitral A Point Velocity 81.1 cm/s Mitral E to A Ratio 0.9 MV Deceleration Time 329.8 ms MV E' Velocity 7.4 cm/s Mitral E to MV E' Ratio 9.5 TR Peak Velocity 231.4 cm/s TR Peak Gradient 21.4 mmHg Right Ventricular Systolic Press 26.4 mmHg FINDINGS Left Ventricle Mildly increased left ventricular wall thickness. Normal left ventricular systolic function with no obvious regional wall motion abnormalities. Left ventricular ejection fraction is estimated at 55-60 %. Normal left ventricular diastolic filling pattern. Right Ventricle Normal right ventricular size and function. Right ventricular systolic pressure within normal limits. Right Atrium Normal right atrial size. Left Atrium Normal left atrial size. Mitral Valve Structurally normal mitral valve. No evidence for mitral valve prolapse. No mitral stenosis. Mild mitral regurgitation. Aortic Valve No aortic valve stenosis or regurgitation. Tricuspid Valve Mild tricuspid regurgitation. Pulmonic Valve Trace pulmonic regurgitation. Pericardium No pericardial effusion. Aorta Normal size aortic root and proximal ascending aorta. CONCLUSIONS Normal left ventricular dimension and systolic function Overall normal intracardiac valves No evidence of pericardial effusion Previewed by: Dr. Eric Myers MD (Electronically Signed) Final Date: 01 August 2022 10:45
== END | disposition home or self-care (01) ==
LOC: RADECHMAIN 14:44
PROVIDERS: ATTEND Internal Medicine
DX: I34.0 Nonrheumatic mitral (valve) insufficiency (principal)
CPT/HCPCS: 93306

== ENCOUNTER 2023-01-26 14:28 | Emergency (ER) | payer OTHER, BC ==
[2023-01-26 14:48] VITALS: RESP 20; TEMP 97.9
--- NOTE | 2023-01-26 16:07 | CT ---
EXAMINATION TYPE: CT brain matthew wo con DATE OF EXAM: 01/26/2023 COMPARISON: None HISTORY: 47-year-old female, pain, head injury, Trauma to head. Denies LOC CT DLP: 1651.9 mGycm Automated exposure control for dose reduction was used. Technique: Examination of the head was done in axial plane without intravenous contrast. Coronal and sagittal reconstructions performed. CT of the cervical spine was obtained in axial plane without intravenous injection of contrast mater ial. Coronal and sagittal reformatted images were obtained from the axial views for evaluation of f ractures, spinal alignment and canal. FINDINGS: Head: There is no evidence of acute intracranial hemorrhage, acute ischemic changes, mass, mass-effect, or extra-axial fluid collection. There is no effacement of cerebral sulci or basal subarachnoid cister ns. There is no hydrocephalus. There is no midline shift. Huerta-white matter distinction is preserv ed. Paranasal sinuses and mastoid air cells are well pneumatized. Orbits and globes are intact. Cervical spine: No craniocervical junction abnormality, predental space widening, or prevertebral soft tissue swellin g. Straightening of the normal cervical lordosis with preserved alignment. Moderate disc/endplate degenerative change is present. Disc osteophyte complexes likely contribute to variable mild narrowing of the spinal canal. Additional scattered facet and uncovertebral joint arthropathy is present. No acute fracture of the cervical spine. Variable mild and moderate bilateral neuroforaminal stenoses throughout. Sagittal and coronal reformatted images confirm above findings. COMBINED IMPRESSION: 1. No acute intracranial abnormality seen. 2. No acute fracture or malalignment of the cervical spine. Moderate spondylotic change.
--- NOTE | 2023-01-26 16:10 | ED ---
Head Injury HPI - General Chief complaint: Head Injury Stated complaint: [facility] - head injury Time Seen by Provider: 01/26/23 14:45 Source: patient Mode of arrival: ambulatory Limitations: no limitations - History of Present Illness Initial comments: 47-year-old female presents to the emergency department for evaluation of concussion. 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 States that it causes significant headache. She never lost consciousness. Her work was requiring that she got evaluated due to the injury. She admits to nausea without vomiting. No visual changes. Denies any neck pain. She does not take any blood thinners. 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 - Related Data Home Medications Medication Instructions Recorded Confirmed Multivitamins, Thera [Multivitamin 1 tab PO DAILY 03/01/21 11/07/21 (formulary)] Ascorbic Acid [Vitamin C] 500 mg PO DAILY 10/09/21 11/07/21 Magnesium 200 mg PO DAILY 10/09/21 11/07/21 Zinc 50 mg PO DAILY 10/09/21 11/07/21 Previous Rx's Medication Instructions Recorded amLODIPine [Norvasc] 5 mg PO DAILY #20 tab 03/01/21 Allergies/Adverse reactions: Allergies Allergy/AdvReac Type Severity Reaction Status Date / Time codeine Allergy Nausea & Verified 01/26/23 14:48 Vomiting sulfamethoxazole Allergy Rash/Hives Verified 01/26/23 14:48 [From Bactrim] trimethoprim [From Bactrim] Allergy Rash/Hives Verified 01/26/23 14:48 Review of Systems ROS Statement: Those systems with pertinent positive or pertinent negative responses have been documented in the HPI. ROS Other: All systems not noted in ROS Statement are negative. Past Medical History Past Medical History: Hypertension History of Any Multi-Drug Resistant Organisms: None Reported Past Surgical History: Section, Tonsillectomy, Uterine Ablation Past Psychological History: No Psychological Hx Reported Smoking Status: Never smoker Past Alcohol Use History: Occasional Past Drug Use History: None Reported General Exam Limitations: no limitations General appearance: alert, in no apparent distress Head exam: Present: atraumatic, normocephalic, normal inspection Eye exam: Present: normal appearance, PERRL, EOMI. Absent: scleral icterus, conjunctival injection, periorbital swelling ENT exam: Present: normal exam, mucous membranes moist Neck exam: Present: normal inspection. Absent: tenderness, meningismus, lymphadenopathy Respiratory exam: Present: normal lung sounds bilaterally. Absent: respiratory distress, wheezes, rales, rhonchi, stridor Cardiovascular Exam: Present: regular rate, normal rhythm, normal heart sounds. Absent: systolic murmur, diastolic murmur, rubs, gallop, clicks GI/Abdominal exam: Present: soft, normal bowel sounds. Absent: distended, tenderness, guarding, rebound, rigid Extremities exam: Present: normal inspection, full ROM, normal capillary refill. Absent: tenderness, pedal edema, joint swelling, calf tenderness Back exam: Present: normal inspection Neurological exam: Present: alert, oriented X3, CN II-XII intact Psychiatric exam: Present: normal affect, normal mood Skin exam: Present: warm, dry, intact, normal color. Absent: rash Course Vital Signs 01/26/23 01/26/23 01/26/23 14:43 15:13 16:18 Temperature 97.9 F 97.9 F Pulse Rate 69 73 Respiratory 20 Rate Blood Pressure 150/96 135/92 137/83 O2 Sat by Pulse 100 Oximetry Medical Decision Making - Medical Decision Making Was pt. sent in by a medical professional or institution (, PA, FISH BAILER, urgent care, hospital, or detention...) When possible be specific @ -No Did you speak to anyone other than the patient for history (EMS, parent, family, police, friend...)? What history was obtained from this source @ -No Did you review nursing and triage notes (agree or disagree)? Why? @ -I reviewed and agree with nursing and triage notes Were old charts reviewed (outside hosp., previous admission, EMS record, old EKG, old radiological studies, urgent care reports/EKG's, detention records)? Report findings @ -No old charts were reviewed Differential Diagnosis (chest pain, altered mental status, abdominal pain women, abdominal pain men, vaginal bleeding, weakness, fever, dyspnea, syncope, headache, dizziness, GI bleed, back pain, seizure, CVA, palpatations, mental health, musculoskeletal)? @ -concussion, SAH, SDH, TBI EKG interpreted by me (3pts min.). @ -No X-rays interpreted by me (1pt min.). @ -No CT interpreted by me (1pt min.). @ -yes U/S interpreted by me (1pt. min.). @ -None done What testing was considered but not performed or refused? (CT, X-rays, U/S, labs)? Why? @ -None What meds were considered but not given or refused? Why? @ -None Did you discuss the management of the patient with other professionals (professionals i.e. DrDanielle, PA, FISH BAILER, lab, RT, psych nurse, social insurance administrator, agriscience teacher, teacher, president and chief commercial officer, adult protective caseworker)? Give summary @ -No Was smoking cessation discussed for >3mins.? @ -No Was critical care preformed (if so, how long)? @ -No Were there social determinants of health that impacted care today? How? (Homelessness, low income, unemployed, alcoholism, drug addiction, transportation, low edu. Level, literacy, decrease access to med. care, residential, rehab)? @ -No Was there de-escalation of care discussed even if they declined (Discuss DNR or withdrawal of care, Hospice)? DNR status @ -No What co-morbidities impacted this encounter? (DM, HTN, Smoking, COPD, CAD, Cancer, CVA, ARF, Chemo, Hep., AIDS, mental health diagnosis, sleep apnea, morbid obesity)? @ -None Was patient admitted / discharged? Hospital course, mention meds given and route, prescriptions, significant lab abnormalities, going to OR and other pertinent info. @ -Upon arrival patient is placed into room 29. Thorough history and physical exam was performed. CT is performed as it is a work-related injury patient request. CT demonstrates no acute process. Results are discussed with the patient. Requesting return to work without restrictions. This is provided the patient. Instructed to take Tylenol for any headache or return for any new or worsening symptoms. Patient was discharged home in stable condition Undiagnosed new problem with uncertain prognosis? @ -yes Drug Therapy requiring intensive monitoring for toxicity (Heparin, Nitro, Insulin, Cardizem)? @ -No Were any procedures done? @ -No Diagnosis/symptom? @ -acute concussion without loc Acute, or Chronic, or Acute on Chronic? @ -acute Uncomplicated (without systemic symptoms) or Complicated (systemic symptoms)? @ -complicated Side effects of treatment? @ -No Exacerbation, Progression, or Severe Exacerbation? @ -No Poses a threat to life or bodily function? How? (Chest pain, [place], [place], pneumonia, PE, COPD, DKA, ARF, appy, cholecystitis, CVA, Diverticulitis, Homicidal, Suicidal, threat to staff... and all critical care pts) @ -yes Disposition Clinical Impression: Concussion without loss of consciousness Disposition: HOME SELF-CARE Condition: Stable Instructions (If sedation given, give patient instructions): Concussion (ED) Additional Instructions: Follow up with your doctor and return for any new or worsening symptoms. Is patient prescribed a controlled substance at d/c from ED?: No Referrals: None,Stated [Primary Care Provider] - 1-2 days Time of Disposition: 16:10
[2023-01-26 16:19] VITALS: BP 137/83; PULSE 73
== END 2023-01-26 16:19 | disposition home or self-care (01) ==
LOC: EC 14:28
DX: S06.0X0A Concussion without loss of consciousness, initial encounter (principal); I10 Essential (primary) hypertension; Z88.1 Allergy status to other antibiotic agents; Z88.2 Allergy status to sulfonamides; Z88.8 Allergy status to other drugs, medicaments and biological substances; W22.8XXA Striking against or struck by other objects, initial encounter
CPT/HCPCS: 70450; 72125; 99283

== ENCOUNTER 2023-10-05 18:44 | Emergency (ER) | payer OTHER, BC ==
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
[2023-10-05 19:28] VITALS: TEMP 98.1
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
[2023-10-05 21:53] VITALS: BP 152/92; PULSE 69; RESP 18
== END 2023-10-05 21:51 | disposition home or self-care (01) ==
LOC: EC 18:44
DX: S29.012A Strain of muscle and tendon of back wall of thorax, initial encounter (principal); I10 Essential (primary) hypertension; Z88.2 Allergy status to sulfonamides; Z88.5 Allergy status to narcotic agent; V43.52XA Car driver injured in collision with other type car in traffic accident, initial encounter; Y92.410 Unspecified street and highway as the place of occurrence of the external cause
CPT/HCPCS: 72050; 72100; 99284